=== PATIENT | female | born 1975 | race Caucasian/White ===

== ENCOUNTER 2018-08-02 23:20 | Emergency (ER) | payer SELFPAY ==
[2018-08-02] MEDS ORDERED: NITROGLYCERIN 0.4 MG 25 EA TAB SL ONE (23:26)
[2018-08-02] MEDS ORDERED: ASPIRIN TABLET 325 MG TAB ONE (23:26)
[2018-08-02] MEDS: NITROGLYCERIN 0.4 MG 25 EA TAB SL ONE (23:28)
[2018-08-02] MEDS: ASPIRIN TABLET 325 MG TAB PO ONE (23:28)
[2018-08-02] MEDS ORDERED: MORPHINE SULFATE INJ 10 MG/ML VIAL ONE (23:31)
--- NOTE | 2018-08-02 23:46 | RAD ---
EXAM DESCRIPTION: AP view of the chest CLINICAL HISTORY:43 years Female, chest pain acute Comparison: None FINDINGS: No focal lung consolidation. No pleural effusion. No pneumothorax. Cardiac and mediastinal silhouette is unremarkable. No acute osseous abnormality. Soft tissues are unremarkable. IMPRESSION: No acute findings. No focal lung consolidation. Electronically signed by: Fabricio Bernal DO 08/02/2018 11:42 PM CDT
[2018-08-02] MEDS: MORPHINE SULFATE INJ 10 MG/ML VIAL IV ONE (23:57)
[2018-08-03] MEDS: MORPHINE SULFATE INJ 10 MG/ML VIAL IV ONE (00:15)
[2018-08-03] MEDS ORDERED: PIPERACILLIN/TAZOBACTAM 3.375 GM VIAL IVPB ONE (00:17)
[2018-08-03] MEDS: PIPERACILLIN/TAZOBACTAM 3.375 GM in SODIUM CHLORIDE 0.9% 100ML 100 ML IVPB ONE (00:21)
[2018-08-03] MEDS: ALUMINUM & MAGNESIUM HYDROXIDE 30 ML UD PO ONE (00:22)
[2018-08-03] MEDS: POTASSIUM CHLORIDE ELIXIR 20 MEQ/15 ML UD PO ONE (00:22)
[2018-08-03] MEDS: SODIUM CHLORIDE 0.9% 1000ML 1,000 ML IVS ONE (00:34)
[2018-08-03] MEDS: ACETAMINOPHEN 325 MG TAB PO ONE (00:55)
--- NOTE | 2018-08-03 01:08 | CT ---
EXAM DESCRIPTION: CTA Chest CLINICAL HISTORY: 43 years, Female, acute cp, tachycardia, fever COMPARISON: None. TECHNIQUE: Axial images through the chest were performed after the administration of intravenous contrast using a pulmonary embolus protocol. MIPS were performed. This exam was performed according to our departmental dose-optimization program which includes use of Automated Exposure Control, adjustment of the mA and/or kV according to patient size and/or use of iterative reconstruction technique. FINDINGS: No pulmonary embolus is identified. Normal caliber aorta without dissection. No pericardial effusion. No pleural effusion. No focal lung consolidation. No pneumothorax. Patent central airway. Soft tissues are unremarkable. No acute osseous findings. No acute abnormality within the visualized upper abdomen. IMPRESSION: No pulmonary embolus. Electronically signed by: Fabricio Bernal DO 08/03/2018 1:05 AM CDT
[2018-08-03] MEDS ORDERED: ENOXAPARIN SODIUM 60 MG/0.6 ML SYG SUBCU ONE (01:19)
--- NOTE | 2018-08-03 01:31 | ED.PDOC ---
History of Present Illness - General Chief Complaint: Chest Pain/DC Stated Complaint: chest pain Time Seen by Provider: 08/02/18 23:28 Source: patient Exam Limitations: no limitations - History of Present Illness Initial Comments: The patient is a 43-year-old female presenting to the emergency room secondary to very acute onset chest pain that occurred while she was taking a shower. She felt fine immediately prior to that. Chest pain is the worst that she has experienced in her life. No real nausea. No vomiting. She does have mild shortness of breath but no hypoxia. No history of any lung issues. No history of any heart issues. No history of any DVTs or pulmonary emboli. She is not currently on any medications. No syncope or near syncope. Pain is made worse with coughing. It is made worse with breathing. The patient had not been feeling sick prior. She did arrive with a fever more than 101. She had previously had a mild headache a couple of days ago. She does not have one now. No altered mental status or nuchal rigidity. No trauma. No history of any significant electrolyte issues and no history of any hypothyroidism.nitroglycerin did not help at all. Morphine did help some.she is not having abdominal pain. No history of any significant esophagitis or gastritis.she does have a distant history of melanoma resected and treated more than 11 years ago. Timing/Duration: 1/2 hour Severity: severe Improving Factors: medication Worsening Factors: movement Associated Symptoms: chest pain, shortness of breath Allergies/Adverse Reactions: Allergies NO KNOWN ALLERGY Allergy (Verified 08/02/18 23:35) Home Medications: Ambulatory Orders Amoxicillin & Pot Clavulanate [Augmentin Tab] 875 mg PO BID #20 tab 08/03/18 Famotidine [Pepcid Tab] 20 mg PO BID #60 tab 08/03/18 Review of Systems - Review of Systems Constitutional: States: no symptoms reported EENTM: States: no symptoms reported Respiratory: States: short of breath Cardiology: States: chest pain Gastrointestinal/Abdominal: States: no symptoms reported Genitourinary: States: no symptoms reported Musculoskeletal: States: no symptoms reported Skin: States: no symptoms reported Neurological: States: no symptoms reported Endocrine: States: no symptoms reported All other Systems: No Change from Baseline Past Medical History (General) - Patient Medical History Hx Congestive Heart Failure: No Hx Diabetes: No Hx Cancer: Yes - melanoma Surgical History: no surgical history - Vaccination History Hx Influenza Vaccination: No - Female History Patient : No Family Medical History - Family History Father Family History: Unknown Physical Exam - Physical Exam General Appearance: Alert, Obvious distress Eye Exam: bilateral normal Ears, Nose, Throat: hearing grossly normal, normal ENT inspection, normal pharynx Neck: full range of motion, supple Respiratory: lungs clear, normal breath sounds, no respiratory distress, no accessory muscle use, other - she does have mild tenderness to palpation over the distal pectoralis muscles bilaterally. No crepitus. No deformity. Normal movement of the shoulders. Normal movement of the neck. No obvious torticollis. Cardiovascular/Chest: normal peripheral pulses, no edema, tachycardia - sinus tachycardia Peripheral Pulses: radial,right: 2+, radial,left: 2+, dorsalis pedis,right: 2+, dorsalis pedis,left: 2+ Gastrointestinal/Abdominal: non tender, soft Rectal Exam: deferred Back Exam: no CVA tenderness, no vertebral tenderness Extremity: normal range of motion, non-tender, normal inspection, no pedal edema, normal capillary refill Neurologic: customer response representative II-XII nml as tested, alert, normal mood/affect, oriented x 3 Skin Exam: pallor - mild Comments: Vital Signs - 24 hr 08/02/18 08/02/18 08/03/18 23:32 23:36 00:08 Temperature 101.6 F H Pulse Rate Pulse Rate [ 116 H 112 H 101 H Apical] Respiratory 24 24 Rate Blood Pressure 119/82 103/78 [Left Arm] O2 Sat by Pulse 100 100 Oximetry 08/03/18 08/03/18 00:36 01:30 Temperature 102.2 F H Pulse Rate 104 H Pulse Rate [ 102 H 107 H Apical] Respiratory 18 18 Rate Blood Pressure 112/70 110/73 [Left Arm] O2 Sat by Pulse 99 100 Oximetry Progress - Progress Progress: 08/03/18 01:36 the patient is a 43-year-old female presenting to the emergency room s econdary to abrupt onset of severe chest pain, the worst in her life. The patient was found to be tachycardic, and febrile. There was no pain relief with nitroglycerin but morphine did provide some pain relief. Laboratory work does indicate a significant leukocytosis along with a mild hypokalemia. She has been given a dose of potassium, some IV fluids and some Zosyn as a broad-spectrum antibiotic. infection is suspected given the fever and the leukocytosis however no definitive source has been found. Blood cultures have been performed. we are currently repeating the CBC and the lactic acid and we're also obtaining a TSH. CT angiogram of the chest shows no acute pathology. Initial set of cardiac enzymes is negative. EKGs are not definitive for ischemia. Initially, aortic pathology, pulmonary emboli, or mediastinitis were suspected given the abrupt onset of chest pain and fever. These do not appear to be the case at least based upon the CT scan of the chest. for now the plan will be to find the source of the fever and to rule out the patient. She is being given a dose of Lovenox. currently repeating enzymes and lactic acid. 08/03/18 01:41 08/03/18 02:30 epeat cardiac enzymes at 2 hours shows no evidence of any elevation of the cardiac enzymes. Lactic acid is not any worse. She does appear to have a small urinary tract infection. thyroid function is normal. The patient is refusing to stay longer. She has agreed to come back in the morning and get a repeat set of cardiac enzymes with her primary care doctor along with another EKG. She is going to be sent home with Augmentin as a broad-spectrum antibiotic for the UTI with ever other possible infection we may be missing here. Additionally she'll be placed on Pepcid twice daily for the next month. I'm uncertain about the origin of her chest pain. The patient refuses to stay longer for full cardiac rule out. Chest pain has largely resolved at this point.the patient will also need to have her potassium followed. 08/03/18 02:33 - Results/Orders Results/Orders: chest x-ray appears benign. CT angiogram of the chest appears benign. No pulmonary embolus. No dissection. No significant infiltrate. No pneumothorax. Upper abdominal contents show no acute issues. Laboratory Tests 08/02/18 08/02/18 08/02/18 23:33 23:39 23:39 WBC 12.0 H RBC 4.13 L Hgb 12.4 Hct 36.0 MCV 87.2 MCH 30.0 MCHC 34.4 RDW 12.7 Plt Count 199 MPV 8.9 Absolute Neuts (auto) 10.00 H Absolute Lymphs (auto) 1.00 Absolute Monos (auto) 0.90 H Absolute Eos (auto) 0.00 Absolute Basos (auto) 0.00 Neutrophils % 83.6 H Lymphocytes % 8.1 L Monocytes % 7.9 Eosinophils % 0.3 L Basophils % 0.1 PT INR PTT (SP) D-Dimer, Quantitative Sodium 135 Potassium 3.3 L Chloride 104 Carbon Dioxide 21 Anion Gap 13.3 BUN 18 Creatinine 0.68 BUN/Creatinine Ratio 26.5 H Random Glucose 113 H Serum Osmolality 272.8 L Lactic Acid 1.8 Calcium 9.0 Magnesium 1.8 Total Bilirubin 0.5 AST 25 ALT 14 Alkaline Phosphatase 49 Creatine Kinase 107 CK-MB (CK-2) 1.1 CK-MB (CK-2) % Not Reportable Troponin I < 0.02 B-Natriuretic Peptide 15.2 Serum Total Protein 7.1 Albumin 4.3 Globulin 2.8 Albumin/Globulin Ratio 1.5 Serum HCG, Qual 08/02/18 08/02/18 23:39 23:39 WBC RBC Hgb Hct MCV MCH MCHC RDW Plt Count MPV Absolute Neuts (auto) Absolute Lymphs (auto) Absolute Monos (auto) Absolute Eos (auto) Absolute Basos (auto) Neutrophils % Lymphocytes % Monocytes % Eosinophils % Basophils % PT 11.8 H INR 1.18 H PTT (SP) 28.2 D-Dimer, Quantitative 0.37 Sodium Potassium Chloride Carbon Dioxide Anion Gap BUN Creatinine BUN/Creatinine Ratio Random Glucose Serum Osmolality Lactic Acid Calcium Magnesium Total Bilirubin AST ALT Alkaline Phosphatase Creatine Kinase CK-MB (CK-2) CK-MB (CK-2) % Troponin I B-Natriuretic Peptide Serum Total Protein Albumin Globulin Albumin/Globulin Ratio Serum HCG, Qual Negative initial and repeat EKGs show mild sinus tachycardia between 99 and 110 bpm. Mild right axis deviation with a mild right bundle branch block. Very mild ST depression in anterior lateral leads. Possibly mild ST depression in 3 and aVF. Not definitive. Normal QT interval. Normal R-wave progression otherwise. No flipped T waves. No ST segment elevation. Laboratory Tests 08/02/18 08/02/18 08/02/18 23:33 23:39 23:39 WBC 12.0 H RBC 4.13 L Hgb 12.4 Hct 36.0 MCV 87.2 MCH 30.0 MCHC 34.4 RDW 12.7 Plt Count 199 MPV 8.9 Absolute Neuts (auto) 10.00 H Absolute Lymphs (auto) 1.00 Absolute Monos (auto) 0.90 H Absolute Eos (auto) 0.00 Absolute Basos (auto) 0.00 Neutrophils % 83.6 H Lymphocytes % 8.1 L Monocytes % 7.9 Eosinophils % 0.3 L Basophils % 0.1 PT INR PTT (SP) D-Dimer, Quantitative Sodium 135 Potassium 3.3 L Chloride 104 Carbon Dioxide 21 Anion Gap 13.3 BUN 18 Creatinine 0.68 BUN/Creatinine Ratio 26.5 H Random Glucose 113 H Serum Osmolality 272.8 L Lactic Acid 1.8 Calcium 9.0 Magnesium 1.8 Total Bilirubin 0.5 AST 25 ALT 14 Alkaline Phosphatase 49 Creatine Kinase 107 CK-MB (CK-2) 1.1 CK-MB (CK-2) % Not Reportable Troponin I < 0.02 B-Natriuretic Peptide 15.2 Serum Total Protein 7.1 Albumin 4.3 Globulin 2.8 Albumin/Globulin Ratio 1.5 TSH Serum HCG, Qual Urine Color Urine Appearance Urine pH Ur Specific Mcclave Urine Protein Urine Glucose (UA) Urine Ketones Urine Blood Urine Nitrite Urine Bilirubin Urine Urobilinogen Ur Leukocyte Esterase Urine RBC Urine WBC Ur Epithelial Cells Amorphous Sediment Urine Bacteria 08/02/18 08/02/18 08/03/18 23:39 23:39 01:30 WBC RBC Hgb Hct MCV MCH MCHC RDW Plt Count MPV Absolute Neuts (auto) Absolute Lymphs (auto) Absolute Monos (auto) Absolute Eos (auto) Absolute Basos (auto) Neutrophils % Lymphocytes % Monocytes % Eosinophils % Basophils % PT 11.8 H INR 1.18 H PTT (SP) 28.2 D-Dimer, Quantitative 0.37 Sodium Potassium Chloride Carbon Dioxide Anion Gap BUN Creatinine BUN/Creatinine Ratio Random Glucose Serum Osmolality Lactic Acid Calcium Magnesium Total Bilirubin AST ALT Alkaline Phosphatase Creatine Kinase 97 CK-MB (CK-2) 0.8 CK-MB (CK-2) % Not Reportable Troponin I < 0.02 B-Natriuretic Peptide Serum Total Protein Albumin Globulin Albumin/Globulin Ratio TSH Serum HCG, Qual Negative Urine Color Urine Appearance Urine pH Ur Specific Mcclave Urine Protein Urine Glucose (UA) Urine Ketones Urine Blood Urine Nitrite Urine Bilirubin Urine Urobilinogen Ur Leukocyte Esterase Urine RBC Urine WBC Ur Epithelial Cells Amorphous Sediment Urine Bacteria 08/03/18 08/03/18 08/03/18 01:30 01:30 01:30 WBC 9.6 RBC 3.87 L Hgb 11.7 L Hct 34.1 L MCV 88.0 MCH 30.3 MCHC 34.4 RDW 12.6 Plt Count 163 MPV 8.6 Absolute Neuts (auto) 8.50 H Absolute Lymphs (auto) 0.40 L Absolute Monos (auto) 0.70 Absolute Eos (auto) 0.00 Absolute Basos (auto) 0.00 Neutrophils % 88.4 H Lymphocytes % 4.5 L Monocytes % 6.8 Eosinophils % 0.1 L Basophils % 0.2 PT INR PTT (SP) D-Dimer, Quantitative Sodium Potassium Chloride Carbon Dioxide Anion Gap BUN Creatinine BUN/Creatinine Ratio Random Glucose Serum Osmolality Lactic Acid 1.6 Calcium Magnesium Total Bilirubin AST ALT Alkaline Phosphatase Creatine Kinase CK-MB (CK-2) CK-MB (CK-2) % Troponin I B-Natriuretic Peptide Serum Total Protein Albumin Globulin Albumin/Globulin Ratio TSH 1.67 Serum HCG, Qual Urine Color Urine Appearance Urine pH Ur Specific Mcclave Urine Protein Urine Glucose (UA) Urine Ketones Urine Blood Urine Nitrite Urine Bilirubin Urine Urobilinogen Ur Leukocyte Esterase Urine RBC Urine WBC Ur Epithelial Cells Amorphous Sediment Urine Bacteria 08/03/18 01:45 WBC RBC Hgb Hct MCV MCH MCHC RDW Plt Count MPV Absolute Neuts (auto) Absolute Lymphs (auto) Absolute Monos (auto) Absolute Eos (auto) Absolute Basos (auto) Neutrophils % Lymphocytes % Monocytes % Eosinophils % Basophils % PT INR PTT (SP) D-Dimer, Quantitative Sodium Potassium Chloride Carbon Dioxide Anion Gap BUN Creatinine BUN/Creatinine Ratio Random Glucose Serum Osmolality Lactic Acid Calcium Magnesium Total Bilirubin AST ALT Alkaline Phosphatase Creatine Kinase CK-MB (CK-2) CK-MB (CK-2) % Troponin I B-Natriuretic Peptide Serum Total Protein Albumin Globulin Albumin/Globulin Ratio TSH Serum HCG, Qual Urine Color Yellow Urine Appearance Sl cloudy Urine pH 8.5 H Ur Specific Mcclave 1.015 Urine Protein Negative Urine Glucose (UA) Negative Urine Ketones Negative Urine Blood Large H Urine Nitrite Negative Urine Bilirubin Negative Urine Urobilinogen 0.2 Ur Leukocyte Esterase Small H Urine RBC 3-5 H Urine WBC 10-20 H Ur Epithelial Cells 5-10 Amorphous Sediment 2+ Urine Bacteria 1+ Departure - Departure Clinical Impression: Hypokalemia Chest pain Qualifiers: Chest pain type: chest pain on breathing Qualified Code(s): R07.1 - Chest pain on breathing; R07.81 - Pleurodynia Urinary tract infection Qualifiers: Urinary tract infection type: acute cystitis Hematuria presence: without hematuria Qualified Code(s): N30.00 - Acute cystitis without hematuria Fever Qualifiers: Fever type: unspecified Qualified Code(s): R50.9 - Fever, unspecified Leukocytosis Qualifiers: Leukocytosis type: unspecified Qualified Code(s): D72.829 - Elevated white blood cell count, unspecified Disposition: Discharge to Home or Self Care Condition: Fair Departure Forms: ED Discharge - Pt. Copy, Patient Portal Self Enrollment Instructions: DI for Chest Pain, Hypokalemia (DC), Pleuritic Chest Pain, Chest Pain (DC) Diet: bland diet Activity: increase activity as tolerated Referrals: Urban Fletcher MD [Primary Care Provider] - 1-2 Days Prescriptions: Amoxicillin & Pot Clavulanate [Augmentin Tab] 875 mg PO BID #20 tab Famotidine [Pepcid Tab] 20 mg PO BID #60 tab Home Medications: Ambulatory Orders Amoxicillin & Pot Clavulanate [Augmentin Tab] 875 mg PO BID #20 tab 08/03/18 Famotidine [Pepcid Tab] 20 mg PO BID #60 tab 08/03/18 Additional Instructions: The patient is a 43-year-old female presenting secondary to acute severe onset chest pain. To closely placed sets of cardiac enzymes failed to change. CT angiogram of the chest failed to show any acute pathology. Chest pa in seems to be more pleuritic in nature. The patient is unwilling to stay for the full cardiac rule out. She is going to see her primary care doctor in the morning and needs to have another set of cardiac enzymes and another EKG. Copies of the EKGs here are being sent with her. She did have a dose of aspirin, Lovenox, nitroglycerin and morphine for the discomfort. Chest pain does seem to be significantly better at this point. A little more unsettling is a fact that the patient has a fever with this. She does have what appears to be a small urinary tract infection. The patient is going to be placed on Augmentin as a broad-spectrum antibiotic. CT angiogram of the chest failed to show any evidence of aortic pathology, pulmonary emboli or significant pulmonary infection. No evidence of any pneumothorax. No evidence of any mediastinitis. It is noted however that sometimes it takes longer to see changes of mediastinitis after an acute event. No free air in the mediastinum was noted. The patient is additionally going to be sent home with Pepcid twice daily for the next month. She does have some mild hypokalemia and does need to have this rechecked in the near future. She was given a dose of potassium here. Again I'm not entirely certain that the source of the fever is the urinary tract infection and I'm not certain of the source of the chest pain at this time. The patient does understand that it is recommended that she stay for completion of the workup. She has however agreed to the follow-up as above. ER warnings were given for any worsening.
[2018-08-03 01:32] VITALS: O2SAT 100
[2018-08-03] MEDS: PANTOPRAZOLE SODIUM IV 40 MG VIAL IV ONE (02:21)
[2018-08-03 02:49] VITALS: BP 104/70; TEMP 101.1
== END 2018-08-03 02:50 | disposition left against medical advice (07) ==
LOC: ER 23:20
DX: R07.1 Chest pain on breathing (principal); N30.00 Acute cystitis without hematuria; D72.829 Elevated white blood cell count, unspecified; E87.6 Hypokalemia; R07.81 Pleurodynia; R00.0 Tachycardia, unspecified; I45.10 Unspecified right bundle-branch block; R06.02 Shortness of breath; Z53.29 Procedure and treatment not carried out because of patient's decision for other reasons; Z85.820 Personal history of malignant melanoma of skin
CPT/HCPCS: 36415; 71045; 71275; 80053; 81001; 82550; 82553; 83605; 83735; 83880; 84443; 84484; 84703; 85025; 85379; 85610; 85730; 87040; 87086; 93005; J1650; J2270; J2543; J7030

== ENCOUNTER → 2020-03-04 | Outpatient (CLI) | payer SELFPAY ==
--- NOTE | 2020-03-04 16:51 | US ---
EXAM DESCRIPTION: 3D Diagnostic, Bilateral (accession [id number]), Breast,Left (accession [id number]): Ultrasound CLINICAL HISTORY: 44 yearsFemaleANNUAL SCREENING palpable mass lateral left breast. Enlarging in the past 2 months. Minimal tenderness. No family history breast cancer. Menarche age 12. Childbirth age 24. Premenopausal. HRT 5 or more years ago. Lifetime risk of developing breast cancer (Tyrer-Cuzick model)(%): 9.6. COMPARISON: Diagnostic mammography January 2014. TECHNIQUE: Bilateral LM, CC, and MLO projection full-field images, digital tomosynthesis technique. Bilateral 2-D digital full-field images: LM, CC, and MLO projections. CAD available for 2-D images.. Transcutaneous scanning of the left breast utilizing andres-scale and Doppler modes. Scanning performed by the software requirements engineer and Dr. White. FINDINGS: The breast parenchymal density pattern is: Extremely dense breast tissue, which lowers the sensitivity of mammography. No skin thickening or nipple retraction angular skin marker anterior third of the breast upper outer quadrant, approximately 1:00 and 2 cm from the nipple. Circumscribed 8 mm nodule just under the skin surface in the same region. Bilateral solitary microcalcifications. No new focal, stellate mass or density, focal asymmetry , and no suspicious microcalcifications right breast. Ultrasound: Scanning anterior and mid left breast upper outer quadrant. In the retroareolar breast is a circumscribed anechoic mass measuring 2.4 x 1.4 cm. Not vascular. Wider than tall orientation and posterior acoustic enhancement. Slightly more lateral is a similar mass also cyst, measuring 9.6 x 10.2 x 5.5 mm. A third cyst measures 7.5 x 6.4 x 4.0 cm. Fourth cyst measures 6.5 x 6.4 mm. The smaller cysts are also nonvascular. IMPRESSION: Benign exam. BIRAD CATEGORY: 2 BENIGN FINDINGS. RECOMMENDATIONS: FOLLOW UP: Return to routine digital bilateral mammographic screening, one year interval from date Written communication explaining the IMPRESSION and follow-up, will be mailed to the patient and referring health care provider. The FINDINGS and the FOLLOW-UP plan were reviewed in person with the patient after the examination. According to the [employer], yearly mammograms are recommended starting at age 40 and continuing as long as a woman is in good health. Any breast change noted on a breast self-exam should be reported promptly to the patient's healthcare provider. Breast MRI is recommended for women with an approximately 20-25% or greater lifetime risk of breast cancer, including women with a strong family history of breast or ovarian cancer and women who have been treated for Hodgkin's disease. A negative mammographic report should not delay tissue diagnosis in patients with significant clinical history or physical findings. Extremely dense breast tissue limits the sensitivity of digital mammography. Electronically signed by: Lester White MD 03/04/2020 4:50 PM [facility]
== END ==
LOC: MAMMO 10:52
PROVIDERS: ATTEND Family Medicine
DX: N60.12 Diffuse cystic mastopathy of left breast (principal)
CPT/HCPCS: 76641; 77066; G0279